=== PATIENT | female | born 2005 | race Native Hawaiian/Other Pacific Islander ===

== ENCOUNTER → 2023-06-17 14:44 | Outpatient (CLI) | payer OTHER, SELFPAY ==
--- NOTE | 2023-06-17 14:45 | DI.US.S_ITS ---
PROCEDURE: US OB <= 14 WEEKS FETUS INDICATIONS: Dating and viability, irregular menses OUTSIDE/PRIOR DATING DATA: Last menstrual period (LMP): 02/09/2023. LMP-based estimated date of delivery (TG): 11/16/2023. First dating scan (date and location): 06/17/2023. Estimated date of delivery (TG) from first dating scan: 12/27/2023. The calculations are made using the ultrasound TG of 12/27/2023. TECHNIQUE: Real-time scanning was performed of the fetus and maternal pelvic organs, with image documentation. Endovaginal scanning was also performed to better visualize the fetus and maternal ovaries. COMPARISON: None. FINDINGS: Embryo: Single gestational sac is seen. The crown-rump length measures 5.9 cm, consistent with 12 weeks and 3 days. Anterior placenta with possible complete placenta previa. Heart rate: 168 beats per minute Maternal organs: Ovaries are grossly within normal limits. IMPRESSION: 1. Single live intrauterine consistent with 12 weeks and 3 days by ultrasound. This is discordant with last menstrual period, recommend clinical correlation and follow-up ultrasound as clinically indicated. 2. Anterior placenta with possible complete placenta previa, attention on follow-up exams. We strive to produce accurate, complete, and clear reports of imaging services. To assist us in improving patient care, this report was composed using standard report templates and voice recognition software. Therefore, it may contain abnormal punctuation, insertions and/or omissions. Occasional wrong-word or sound-alike substitutions may occur. Though we review the report and make efforts to correct it, we do recommend that the report be read carefully in proper context to recognize any text inaccuracies. Dictated by: Alan Fry M.D. on 06/17/2023 at 16:35 Approved by: Alan Fry M.D. on 06/17/2023 at 16:40
== END ==
PROVIDERS: Referring Provider Obstetrics & Gynecology; Visit Provider Obstetrics & Gynecology
DX: Z34.01 Encounter for supervision of normal first pregnancy, first trimester (principal); Z3A.12 12 weeks gestation of pregnancy
CPT/HCPCS: 76801; 76817

== ENCOUNTER → 2023-06-25 14:28 | Outpatient (CLI) | payer OTHER, SELFPAY ==
[2023-06-25 14:44] LABS: Specimen Label NATERA
[2023-06-25 15:29] LABS: Add Manual Diff / Slide Review NO; Basophils Absolute Auto 0 /uL (0-100); Basophils Percent Auto 0.3 % (0-2); Eosinophils Absolute Auto 0 /uL (0-450); Eosinophils Percent Auto 0.3 % (2-4); Hematocrit 33.9 % (36-46); Hemoglobin 11.7 g/dL (12.0-16.0); Lymphocytes Absolute Auto 1800 /uL (1100-4500); Lymphocytes Percent Auto 15.1 % (25-40); Mean Corpuscular HGB Conc 34.5 % (30-36); Mean Corpuscular Hemoglobin 29.8 PG (26-34); Mean Corpuscular Volume 86.3 fL (80-100); Monocytes Absolute Auto 500 /uL (0-900); Monocytes Percent Auto 4.4 % (3-14); Neutrophils Absolute Auto 9200 /uL (1500-7000); Neutrophils Percent Auto 79.9 % (50-75); Platelet Count 297 X10^3/uL (150-400); Red Blood Cell Count 3.93 X10^6/uL (4.0-5.2); Red Cell Distribution Width 14.2 % (11.6-14.8); White Blood Cell Count 11.6 X10^3/uL (4.5-11.0)
[2023-06-25 20:26] LABS: Urine N gonorrhoeae NOT DETECTED
[2023-06-25 20:32] LABS: Urine Chlamydia NOT DETECTED
[2023-06-25 21:55] LABS: Hepatitis B Surface Antigen NEGATIVE s/c (NEGATIVE); Rubella Antibody IgG 3.4 IU/mL (>15)
[2023-06-25 22:11] LABS: HIV 1 & 2 Ab/Ag 4th Gen Combo NEGATIVE (NEGATIVE); Hep C Virus Ab w/Reflex Quant NEGATIVE s/c (NEGATIVE)
[2023-06-26 05:44] LABS: RPR Screen Non Reactive (Non Reactive)
[2023-06-26 08:35] LABS: Varicella IgG Antibody <135 index (Immune >165)
== END ==
PROVIDERS: Specialist; Referring Provider Physician Assistant Medical; Visit Provider Physician Assistant Medical
DX: Z34.00 Encounter for supervision of normal first pregnancy, unspecified trimester (principal); Z3A.13 13 weeks gestation of pregnancy
CPT/HCPCS: 36415; 80055; 86787; 86803; 86850; 86900; 86901; 87389; 87491; 87591

== ENCOUNTER → 2023-07-23 14:35 | Outpatient (CLI) | payer OTHER, SELFPAY ==
[2023-07-25 20:59] LABS: AFP Value 37.8 ng/mL (.); Gest Age on Col Date 20.3 weeks (.); Insulin Dep Diabetes No (.); OSBR Risk 1IN 10000 (.); Results Report (.); Test Results *Screen Negative* (.)
== END ==
PROVIDERS: Referring Provider Physician Assistant Medical; Visit Provider Physician Assistant Medical
DX: Z34.02 Encounter for supervision of normal first pregnancy, second trimester (principal); Z3A.17 17 weeks gestation of pregnancy
CPT/HCPCS: 36415; 82105

== ENCOUNTER → 2023-08-10 06:41 | Outpatient (CLI) | payer OTHER, SELFPAY ==
--- NOTE | 2023-08-10 06:42 | DI.US.S_ITS ---
PROCEDURE: US OB >= 14 WEEKS FETUS INDICATIONS: 20 week anatomy scan OUTSIDE/PRIOR DATING DATA: Last menstrual period (LMP): 02/09/2023 LMP-based estimated date of delivery (TG): 11/16/2023 First dating scan (date and location): 06/17/2023 Estimated date of delivery (TG) from first dating scan: 12/27/2023 The calculations are made using the ultrasound TG of 12/27/2023 TECHNIQUE: Real-time scanning was performed of the fetus, with image documentation and biometric measurements. Endovaginal scanning: Not performed COMPARISON: [facility], OB <= 14 WEEKS FETUS, 06/17/2023, 14:52. FINDINGS: General: A single living intrauterine gestation is present. Presentation: Transverse Placenta: Placental position is anterior, without previa. Amniotic fluid index: 17.3 cm, normal range is 5-24 cm. Single deepest vertical pocket is 5.5 cm. heart rate: 145 beats per minute. Maternal cervical canal: 3.3 cm long. Normal lower limit is 2.5 cm. biometrics: Biparietal diameter: 4.5 cm, 19 weeks 3 days Head circumference: 17.2 cm, 19 weeks 5 days Abdominal circumference: 15.4 cm, 20 weeks 4 days Femur length: 3.3 cm, 20 weeks 1 day Clinically estimated gestational age: 20 weeks 1 day Composite gestational age from present scan: 20 weeks 0 days Estimated weight and percentile: 345 grams, 55th percentile Anatomic survey: Neuro: Ventricles are non-dilated at less than 10 mm. Cisterna magna is normal at 3-11 mm. Cerebellum is normal in size and morphology. Nuchal skin fold: Normal at less than 6 mm between 14-21 weeks gestational age. Face: Nose and lips, facial profile are normal. Spine: No evidence for spina bifida. Heart: 4-chambered heart is present, with normal ventricular outflow tracts. Diaphragm: Diaphragm is intact. Stomach: Left-sided stomach is present. Kidneys: No hydronephrosis. Normal is less than 5 mm in 2nd trimester, less than 7 mm in 3rd trimester. Cord: 3-vessel cord. cord insertion is not well visualized. Placental cord insertion appears normal. Bladder: Normal in size. Extremities: All 4 extremities identified. IMPRESSION: 1. Single live intrauterine with appropriate interval growth compared to the ultrasound from 06/17/2023. 2. cord insertion and anterior abdominal wall are not well seen due to positioning. Recommend follow-up exam. 3. anatomic survey is otherwise within normal limits. We strive to produce accurate, complete, and clear reports of imaging services. To assist us in improving patient care, this report was composed using standard report templates and voice recognition software. Therefore, it may contain abnormal punctuation, insertions and/or omissions. Occasional wrong-word or sound-alike substitutions may occur. Though we review the report and make efforts to correct it, we do recommend that the report be read carefully in proper context to recognize any text inaccuracies. Approved by: Daniel Justin M.D. on 08/10/2023 at 10:46
== END ==
PROVIDERS: Referring Provider Physician Assistant Medical; Visit Provider Physician Assistant Medical
DX: Z34.02 Encounter for supervision of normal first pregnancy, second trimester (principal); Z3A.20 20 weeks gestation of pregnancy
CPT/HCPCS: 76811

== ENCOUNTER → 2023-08-20 10:28 | Outpatient (CLI) | payer OTHER, SELFPAY ==
--- NOTE | 2023-08-20 10:31 | DI.RAD.S_ITS ---
PROCEDURE: XR CHEST 2V INDICATIONS: tachycardia TECHNIQUE: 2 views of the chest were acquired. COMPARISON: None. FINDINGS: Surgical changes and devices: None. Lungs and pleura: Lungs are clear. No pleural effusions or pneumothorax. Mediastinum: Mediastinal contours are normal. Heart size is normal. Bones and chest wall: No suspicious bony abnormalities. Soft tissues appear unremarkable. IMPRESSION: No evidence acute pulmonary process. Dictated by: Edwin Das M.D. on 08/20/2023 at 10:44 Approved by: Edwin Das M.D. on 08/20/2023 at 10:44
[2023-08-20 11:13] LABS: Add Manual Diff / Slide Review NO; Basophils Absolute Auto 100 /uL (0-100); Basophils Percent Auto 0.7 % (0-2); Eosinophils Absolute Auto 300 /uL (0-450); Eosinophils Percent Auto 2.3 % (2-4); Hematocrit 31.6 % (36-46); Hemoglobin 11.2 g/dL (12.0-16.0); Lymphocytes Absolute Auto 1300 /uL (1100-4500); Lymphocytes Percent Auto 9.6 % (25-40); Mean Corpuscular HGB Conc 35.5 % (30-36); Mean Corpuscular Hemoglobin 31.2 PG (26-34); Monocytes Absolute Auto 800 /uL (0-900); Monocytes Percent Auto 6.3 % (3-14); Neutrophils Absolute Auto 10900 /uL (1500-7000); Neutrophils Percent Auto 81.1 % (50-75); Platelet Count 291 X10^3/uL (150-400); Red Blood Cell Count 3.59 X10^6/uL (4.0-5.2); Red Cell Distribution Width 14.7 % (11.6-14.8); White Blood Cell Count 13.4 X10^3/uL (4.5-11.0)
[2023-08-20 11:23] LABS: Alanine Aminotransferase 13 IU/L (<35); Albumin 3.8 g/dL (3.5-5.0); Albumin Globulin Ratio 1.2 (1.0-2.8); Alkaline Phosphatase 77 U/L (38-126); Aspartate Aminotransferase 18 IU/L (14-36); BUN Creatinine Ratio 11.3 (6-22); Bilirubin Total 0.4 mg/dL (0.2-1.3); Blood Urea Nitrogen 6 mg/dL (7-17); Calcium 9.2 mg/dL (8.4-10.2); Carbon Dioxide 24 mmol/L (22-32); Chloride 102 mmol/L (98-107); Estimated Glomerular Filt Rate > 60 mL/min (>60); Globulin 3.3 g/dL (1.7-4.1); Glucose 79 mg/dL (70-100); HEMOLYSIS < 15 (0-50); Potassium 3.7 mmol/L (3.4-5.1); Sodium 133 mmol/L (137-145); Total Protein 7.1 g/dL (6.3-8.2)
[2023-08-20 11:29] LABS: D Dimer 1200 ng/ml (<500)
== END ==
PROVIDERS: PCP Student in an Organized Health Care Education/Training Program; Referring Provider Student in an Organized Health Care Education/Training Program; Visit Provider Student in an Organized Health Care Education/Training Program
DX: R00.0 Tachycardia, unspecified (principal)
CPT/HCPCS: 36415; 71046; 80053; 85025; 85379

== ENCOUNTER → 2023-08-20 15:38 | Outpatient (CLI) | payer OTHER, SELFPAY ==
--- NOTE | 2023-08-20 15:39 | DI.CT.S_ITS ---
PROCEDURE: CT ANGIO CHEST PE PROTOCOL INDICATIONS: concern for PE TECHNIQUE: After the administration of intravenous contrast, 2 mm thick sections acquired from the pulmonary apices to the posterior costophrenic angles. 3-dimensional maximum intensity projection (MIP) coronal and sagittal reformats were then acquired through the thorax. For radiation dose reduction, the following was used: automated exposure control, adjustment of mA and/or kV according to patient size. COMPARISON: None. FINDINGS: Image quality: Suboptimal timing. Bolus is predominantly in the systemic arterial circulation with suboptimal pulmonary arterial opacification. No obvious pulmonary emboli. Pulmonary arteries: Pulmonary arteries are normal in size, and demonstrate no intraluminal filling defects to suggest central pulmonary embolism. Lungs and pleura: Lungs are clear. No pleural effusions or pneumothorax. Central and peripheral airways are patent. Mediastinum: Heart size is normal, without pericardial effusion. No mediastinal or hilar adenopathy. Thoracic aorta is normal in caliber and enhancement. Esophagus is normal in caliber, without hiatal hernia. Bones and chest wall: No suspicious bony lesions. Ribs and thoracic spine appear intact throughout. Thyroid gland is unremarkable as imaged.. No axillary or supraclavicular adenopathy. Abdomen: Benign-appearing left lobe liver calcification. IMPRESSION: 1. Suboptimal study due to technical timing issues. 2. No large central pulmonary emboli. 3. No acute pulmonary process. Comments: Abdominal shielding was utilized during the study. Results were given to the nurse caring for the patient on 08/20/2023 at 1620 hours. Dictated by: Edwin Das M.D. on 08/20/2023 at 16:13 Approved by: Edwin Das M.D. on 08/20/2023 at 16:25
== END ==
PROVIDERS: PCP Student in an Organized Health Care Education/Training Program; Referring Provider Student in an Organized Health Care Education/Training Program; Visit Provider Student in an Organized Health Care Education/Training Program
DX: R00.0 Tachycardia, unspecified (principal)
CPT/HCPCS: 36415; 71046; 71275; 80053; 85025; 85379; Q9967

== ENCOUNTER → 2023-09-14 06:40 | Outpatient (CLI) | payer OTHER, SELFPAY ==
--- NOTE | 2023-09-14 06:41 | DI.US.S_ITS ---
PROCEDURE: US OB FOLLOW UP INDICATIONS: ABDOMINAL WALL AND CORD INSERTION NOT WELL SEEN OUTSIDE/PRIOR DATING DATA: Last menstrual period (LMP): 02/09/2023 LMP-based estimated date of delivery (TG): 11/16/2023 First dating scan (date and location): 06/17/2023 Estimated date of delivery (TG) from first dating scan: 12/27/2023 The calculations are made using the ultrasound TG of 12/27/2023 TECHNIQUE: Real-time scanning was performed of the fetus, with image documentation. Endovaginal scanning: Not performed COMPARISON: [facility], , US OB >= 14 WEEKS FETUS, 08/10/2023, 6:49. FINDINGS: A single living intrauterine gestation is present. Presentation: Vertex Placenta: Placental position is anterior, without previa. Amniotic fluid index: 19.8 cm, normal range is 5-24 cm. Single deepest vertical pocket is 5.8 cm. heart rate: 149 beats per minute. Maternal cervical canal: 3.0 cm long. Normal lower limit is 2.5 cm. Estimated gestational age from initial scan: 25 weeks 1 day abdominal wall appears intact with orthotopic insertion of a 3 vessel cord. IMPRESSION: 1. Single live intrauterine . 2. cord insertion and abdominal wall appear normal. Approved by: Daniel Justin M.D. on 09/14/2023 at 13:24
== END ==
PROVIDERS: Referring Provider Student in an Organized Health Care Education/Training Program; Visit Provider Student in an Organized Health Care Education/Training Program
DX: Z36.2 Encounter for other antenatal screening follow-up (principal); Z3A.25 25 weeks gestation of pregnancy
CPT/HCPCS: 76816

== ENCOUNTER → 2023-09-15 10:59 | Outpatient (CLI) | payer OTHER, SELFPAY ==
[2023-09-15 13:13] LABS: Hematocrit 31.7 % (36-46)
[2023-09-15 13:31] LABS: GTT (PREG) 1 Hour PP 50gm Dose 102 mg/dL (76-139)
== END ==
PROVIDERS: PCP Student in an Organized Health Care Education/Training Program; Referring Provider Student in an Organized Health Care Education/Training Program; Visit Provider Student in an Organized Health Care Education/Training Program
DX: Z34.90 Encounter for supervision of normal pregnancy, unspecified, unspecified trimester (principal); Z3A.25 25 weeks gestation of pregnancy
CPT/HCPCS: 36415; 82950; 85014; 85018; 86850

== ENCOUNTER → 2023-10-01 15:08 | Outpatient (CLI) | payer OTHER, SELFPAY ==
--- NOTE | 2024-09-13 14:14 | PC.NURSE ---
Ignacioo: This RN called and spoke to pt about Zio placement 10/01/23. She stated she was admitted to [facility] then transfered to a [facility]. Ignacioo got lost while she was inpt. She will f/u with PCP with any issues or needs a new zio.
== END ==
PROVIDERS: Family Provider Student in an Organized Health Care Education/Training Program; PCP Student in an Organized Health Care Education/Training Program; Referring Provider Student in an Organized Health Care Education/Training Program; Visit Provider Student in an Organized Health Care Education/Training Program
DX: R00.0 Tachycardia, unspecified (principal)
CPT/HCPCS: 93246

== ENCOUNTER → 2023-10-05 10:29 | Outpatient (CLI) | payer OTHER, SELFPAY ==
[2023-10-05 13:53] LABS: Appearance Urine UA CLEAR; Bilirubin Urine UA NEGATIVE (NEGATIVE); Color Urine UA YELLOW; Glucose Urine UA NEGATIVE (Negative); Ketones Urine UA NEGATIVE (NEGATIVE); Leukocyte Esterase Urine UA NEGATIVE (NEGATIVE); Nitrite Urine UA NEGATIVE (Negative); Occult Blood Urine UA NEGATIVE (Negative); Protein Urine UA NEGATIVE (Negative); Specific Gravity Urine UA 1.015 (1.000-1.035); Urobilinogen Urine UA 0.2 E.U./dL (0.2)
[2023-10-05 13:56] LABS: pH Urine UA 6.5 (4.5-8.0)
[2023-10-05 14:07] LABS: Bacteria Urine Occasional (0-1); Mucus Urine 1+ (Negative); RBC Urine 0-1/HPF (0-5/HPF); Squamous Epithelial Cell Urine 1-5 /HPF (0-5/HPF); WBC Urine 0-1/HPF (0-5/HPF)
[2023-10-05 14:08] LABS: Culture Indicated Urine Cult Not Indicated
== END ==
PROVIDERS: Family Provider Student in an Organized Health Care Education/Training Program; PCP Student in an Organized Health Care Education/Training Program; Visit Provider Student in an Organized Health Care Education/Training Program
DX: R30.0 Dysuria (principal); Z3A.28 28 weeks gestation of pregnancy
CPT/HCPCS: 81001

== ENCOUNTER 2023-10-08 16:44 | Inpatient (IN) | payer OTHER, SELFPAY ==
[2023-10-08] MEDS: LACTATED RINGERS 1,000 ML 1000 ML IV (17:10)
[2023-10-08] MEDS: BETAMETHASONE 30 MG/5 ML MDV 12 MG IM (17:10)
[2023-10-08 17:17] LABS: Add Manual Diff / Slide Review NO; Basophils Absolute Auto 100 /uL (0-100); Eosinophils Absolute Auto 100 /uL (0-450); Eosinophils Percent Auto 0.6 % (2-4); Hematocrit 30.1 % (36-46); Hemoglobin 10.3 g/dL (12.0-16.0); Lymphocytes Absolute Auto 1800 /uL (1100-4500); Lymphocytes Percent Auto 14.8 % (25-40); Mean Corpuscular HGB Conc 34.3 % (30-36); Mean Corpuscular Hemoglobin 29.6 PG (26-34); Mean Corpuscular Volume 86.1 fL (80-100); Monocytes Absolute Auto 700 /uL (0-900); Monocytes Percent Auto 6.1 % (3-14); Neutrophils Absolute Auto 9200 /uL (1500-7000); Neutrophils Percent Auto 77.5 % (50-75); Platelet Count 318 X10^3/uL (150-400); Red Blood Cell Count 3.49 X10^6/uL (4.0-5.2); Red Cell Distribution Width 14.9 % (11.6-14.8); White Blood Cell Count 11.9 X10^3/uL (4.5-11.0)
[2023-10-08] MEDS: MAGNESIUM SULFATE 4 GM/100 ML PIGGYBACK IV (17:22)
[2023-10-08 17:23] LABS: Appearance Urine UA SL CLOUDY; Bilirubin Urine UA NEGATIVE (NEGATIVE); Color Urine UA YELLOW; Glucose Urine UA NEGATIVE (Negative); Ketones Urine UA NEGATIVE (NEGATIVE); Leukocyte Esterase Urine UA NEGATIVE (NEGATIVE); Nitrite Urine UA NEGATIVE (Negative); Occult Blood Urine UA NEGATIVE (Negative); Protein Urine UA NEGATIVE (Negative); Specific Gravity Urine UA 1.015 (1.000-1.035); Urobilinogen Urine UA 0.2 E.U./dL (0.2)
--- NOTE | 2023-10-08 17:25 | PM.OBHP.IH.1 ---
OB HPI Date/Time Date of admission: 10/08/23 Date Patient Seen: 10/08/23 Time Patient Seen: 17:00 History of Present Condition Chief complaint: labor check TG Calculator Estimated Delivery Date Method Current WG Current Estimate 12/27/23 Ultrasound #1 28w 4d Other Estimates 11/16/23 LMP (Certain) 34w 3d : 1 Para: 0 Narrative: Patient is at 28w4d here who presented to clinic today for cramping, green discharge, and headache. She reports cramping began a few days ago after sexual intercourse. She continued to have intermittent back pain and cramping. She had worsening today and came in for evaluation. She reports headache is 7/10 pain. She has not taken anything for it. Reports good movement. Sterile speculum exam revealed bulging bag. SVE was 4/50/-3. Transferred patient from office to birthing center for labor. has been complicated by early and now resolved placenta previa and idiopathic tachycardia. care: good care Dating criteria OB: based on 1st trimester US only Ultrasounds: abnormal US findings Abnormal ultrasound findings: placenta previa on early US; RESOLVED at 20 week scan Obstetrical complications: none Medical complications OB: other (idiopathic tachycardia) Preadmission Labs Last OB Lab Results: Blood Type O Negative 06/25/23 14:35 Antibody Screen Negative 09/15/23 12:29 Hematocrit 30.1 % (36-46) L 10/08/23 17:00 Hemoglobin 10.3 g/dL (12.0-16.0) L 10/08/23 17:00 Hepatitis B Surface Antigen Negative s/c (NEGATIVE) 06/25/23 14:35 Hepatitis C Antibody Negative s/c (NEGATIVE) 06/25/23 14:35 Rubella Antibody 3.4 IU/mL (>15) L 06/25/23 14:35 Varicella-Zoster IgG Antibody <135 index (Immune >165) L 06/25/23 14:35 Glucose 1 Hour 102 mg/dL (76-139) 09/15/23 12:29 Glucose Tolerance Testin hr -: Chlamydia screen: negative Genetic Screens: Cell-free DNA: Normal Evaluation Evaluation Baseline heart rate: 145 Variability: Average (6-10) monitor accelerations: Present Monitor Decelerations: Absent Contraction Frequency (minutes): 0 Category of Tracing: Reactive Status: Category l Dilation (cm): 4 Effacement (%): 50 Dilation: 3-4 cm Effacement: 40-50% station: -3 Position of cervix: posterior Consistency: medium Pappas score: 4 PFSH Medical History (Updated 10/08/23 @ 18:23 by Tegan Dunlap MD) Acne (~2017) Asthma (~2021) Redding-Gideon syndrome Surgical History (Updated 06/17/23 @ 10:08 by Ligia Packer RN) No pertinent past surgical history Family History (Updated 07/22/23 @ 19:16 by Bertha Hyatt) Grandmother Rheumatoid arthritis Mother Rheumatoid arthritis Grandfather Diabetes mellitus Hypertension Grandmother Degenerative joint disease COPD (chronic obstructive pulmonary disease) Arthritis Father Hypertension Grandmother Hypothyroidism Grandfather Cancer Social History marital status: unmarried,living together number of children: 0 household members: significant other and family lives independently: Yes caregiver/support person: No housing: condominium pets and animals: Yes (1 cat, 1 dog; fiancee managing litter box) education level: college occupational status: unemployed current occupational exposures/hazards: No special lanny needs: No travel history: recent seatbelt use: always water heater temp set < 120 deg: Yes working smoke detector in home: Yes fire extinguisher in home: Yes carbon monox detector in home: Yes firearms in home: No do you feel safe at home: Yes Smoking Status: Former smoker Tobacco: How many years used: 2 second hand exposure: Yes (family and s/o all smoke/vape) alcohol intake: former substance use type: does not use during the past year weight has: increased > 10 lbs well-balanced diet: daily or most days daily servings fruits/ve or more times/day caffeine: Yes (cup coffee in AM) Type(s) of exercise: walking and resistance training Meds Home Medications and Allergies Home Medications Medication Instructions Recorded Confirmed Type vitamin-ferrous sulfate tab PO 06/17/23 10/08/23 History 27 mg iron-folic acid 0.8 mg tablet albuterol sulfate 90 mcg/actuation 2 puff inhalation Q6H PRN 09/24/23 10/08/23 Rx aerosol inhaler shortness of breath #8.5 grams Allergies Allergy/AdvReac Type Severity Reaction Status Date / Time ibuprofen AdvReac Severe Redding-Gideon Verified 10/08/23 16:17 syndrome OB Exam Vital signs Blood Pressure: 130/65 Pulse Rate: 90 Narrative Exam Narrative: SVE 4-5/50/-3 Sterile speculum with membranes visualized Objective Labs 10/08/23 17:00 10/08/23 17:00 Labs: Laboratory Results - last 24 hr 10/08/23 17:00 WBC 11.9 H RBC 3.49 L Hgb 10.3 L Hct 30.1 L MCV 86.1 MCH 29.6 MCHC 34.3 RDW 14.9 H Plt Count 318 Neut % (Auto) 77.5 H Lymph % (Auto) 14.8 L [place] % (Auto) 6.1 Eos % (Auto) 0.6 L Baso % (Auto) 1.0 Neut # (Auto) 9200 H Lymph # (Auto) 1800 [place] # (Auto) 700 Eos # (Auto) 100 Baso # (Auto) 100 Assessment and Plan Assessment and Plan Assessment and Plan narrative: G1 admitted with labor. SVE 4-5/50/-3. Initial BP in clinic 140/83. -4g magnesium bolus given followed by 2g/hr -ampicillin 2g bolus given followed by 1g every 4 hrs -BMZ dose #1 given - monitoring appropriate, no contractions noted however patient feeling cramping -CBC, CMP and urine unremarkable, gonorrhea/chlamydia pending -initial plan was transfer to [facility] in [place], however patient progressed to 5-6/80%/-2; she is unstable for transport and will stay here for delivery -will additionally start nifedipine for tocolysis, 20 mg q8hrs
[2023-10-08 17:30] LABS: pH Urine UA 6.5 (4.5-8.0)
[2023-10-08 18:08] VITALS: BP 130/65; PULSE 90
[2023-10-08] MEDS: MAGNESIUM SULFATE 20 GM/500 ML IV.SOLN IV (18:15)
[2023-10-08 18:41] LABS: Aspartate Aminotransferase 32 IU/L (14-36); Blood Urea Nitrogen 6 mg/dL (7-17); Carbon Dioxide 21 mmol/L (22-32); Chloride 106 mmol/L (98-107); Estimated Glomerular Filt Rate > 60 mL/min (>60); HEMOLYSIS 39 (0-50); Magnesium 1.9 mg/dL (1.6-2.3); Potassium 4.2 mmol/L (3.4-5.1); Sodium 134 mmol/L (137-145)
[2023-10-08 18:59] LABS: Urine N gonorrhoeae NOT DETECTED
[2023-10-08] MEDS: AMPICILLIN 2,000 MG in SODIUM CHLORIDE 0.9% 100 ML 200 MG IV (19:00)
[2023-10-08 19:03] LABS: Urine Chlamydia NOT DETECTED
[2023-10-08] MEDS: NIFEdipine 10 MG CAPSULE 20 MG (19:14)
[2023-10-08 20:35] VITALS: BP 120/58
[2023-10-08 21:49] LABS: Strep Grp B PCR NEG for Grp B Strep
[2023-10-08] MEDS: AMPICILLIN 1,000 MG in SODIUM CHLORIDE 0.9% 100 ML 200 MG IV (23:08)
[2023-10-09] MEDS: NIFEdipine 10 MG CAPSULE 20 MG PO (02:55)
[2023-10-09] MEDS: AMPICILLIN 1,000 MG in SODIUM CHLORIDE 0.9% 100 ML 200 MG IV (02:55)
[2023-10-09] MEDS: MAGNESIUM SULFATE 20 GM/500 ML IV.SOLN IV (04:27)
[2023-10-09 06:39] LABS: Magnesium 4.8 mg/dL (1.6-2.3)
--- NOTE | 2023-10-09 07:40 | P.DS_ITS ---
Discharge Providers Provider Date of admission: 10/08/23 16:44 Discharge Date: 10/09/23 Primary care physician: Tegan Dunlap MD Discharge provider: Tegan Dunlap MD Summary Hospital Course Date Patient Seen: 10/08/23 Time Patient Seen: 17:00 Diagnoses: labor Hospital Course: Patient is at 28w4d here who presented to clinic 10/08/23 for cramping, green discharge, and headache. She reported cramping began a few days ago after sexual intercourse. She continued to have intermittent back pain and cramping. She had worsening and came in for evaluation. At appointment, reported headache was 7/10 pain. Sterile speculum exam revealed bulging bag. Initial SVE was 4/50/-3. Transferred patient from office to [facility] for labor. has been complicated by early and now resolved placenta previa and idiopathic tachycardia. At [facility], patient received 4gm magnesium bolus followed by 2g/hr. She was started on ampicillin for GBS prophylaxis and a GBS swab was obtained. She was given her first dose of BMZ. Her initial blood pressure 140/83. Blood pressures remained within normal limits and CMP, CBC, uric acid were all within normal limits. She was rechecked two hours after initial check and was 5/70/-2 with greater head engagement and bulging bag of membranes. Nifedipine 20mg q8hrs was started. Discussed case with Dr. Aurelia Logan at [facility] who did not feel comfortable with transfer due to progression of cervical change. Overnight her tracing was category 1 and she had 2-3 painful contractions total. On morning of 10/09/23, head was no longer engaged in the pelvis and cervical check was 5/70/-3. Patient denied headache, or ongoing cramping/back pain. Spoke with Dr. Aurelia Logan at [facility] who agreed to accept transfer at this time. GBS that was obtained was negative and antibiotics were discontinued. Urine chlamydia and gonorrhea were also negative. Patient was consented for air transport to [facility] for further management of labor. Discharge Diagnosis (1) labor: Status: Acute Status at Discharge Cognitive/behavioral status at discharge: oriented Functional status at discharge: independent ambulation Time Spent with Patient Time attestation: Total time spent providing and/or coordinating discharge services: Time spent: Greater than 30 minutes Objective Labs 10/08/23 17:00 10/08/23 17:00 Labs: Laboratory Results - last 24 hr 10/08/23 10/08/23 10/09/23 17:00 20:25 06:00 WBC 11.9 H RBC 3.49 L Hgb 10.3 L Hct 30.1 L MCV 86.1 MCH 29.6 MCHC 34.3 RDW 14.9 H Plt Count 318 Neut % (Auto) 77.5 H Lymph % (Auto) 14.8 L [place] % (Auto) 6.1 Eos % (Auto) 0.6 L Baso % (Auto) 1.0 Neut # (Auto) 9200 H Lymph # (Auto) 1800 [place] # (Auto) 700 Eos # (Auto) 100 Baso # (Auto) 100 Sodium 134 L Potassium 4.2 Chloride 106 Carbon Dioxide 21 L BUN 6 L Creatinine 0.46 L Estimated GFR > 60 BUN/Creatinine Ratio 13.0 Uric Acid 5.0 Magnesium 1.9 4.8 H AST 32 Urine Color Yellow Urine Appearance Sl cloudy Urine pH 6.5 Ur Specific [place] 1.015 Urine Protein Negative Urine Glucose (UA) Negative Urine Ketones Negative Urine Occult Blood Negative Urine Nitrate Negative Urine Bilirubin Negative Urine Urobilinogen 0.2 Ur Leukocyte Esterase Negative Ur Chlamydia DNA (PCR) Not detected Group B Strep (PCR) Neg for grp b strep N gonorrhoeae DNA (PCR) Not detected Blood Type O Negative Antibody Screen Negative Discharge Plan Discharge Plan Patient Disposition: [facility] Other facility: [facility] Under care of provider: Dr Aurelia Logan Discharge orders & Medications Prescriptions: No Action albuterol sulfate 90 mcg/actuation HFA aerosol inhaler 2 puff inhalation Q6H PRN (Reason: shortness of breath ) Qty: 8.5 3RF vit-ferrous sulfat-FA 27 mg iron- 0.8 mg tablet PO Follow up/Referrals: Tegan Dunlap MD [Primary Care Provider] - Discharge Data Primary Care Provider: Tegan Dunlap Attending Provider: Tegan Dunlap Admit Date/Time: 10/08/23 16:44
== END 2023-10-09 08:34 | disposition short-term general hospital (02) | DRG 833 ==
PROVIDERS: Admitting Provider Student in an Organized Health Care Education/Training Program; Family Provider Student in an Organized Health Care Education/Training Program; PCP Student in an Organized Health Care Education/Training Program; Referring Provider Student in an Organized Health Care Education/Training Program; Visit Provider Student in an Organized Health Care Education/Training Program
DX: O60.03 Preterm labor without delivery, third trimester (principal); Z3A.28 28 weeks gestation of pregnancy; O99.892 Other specified diseases and conditions complicating childbirth; R51.9 Headache, unspecified
CPT/HCPCS: 36415; 59025; 59050; 80051; 81003; 83735; 84450; 84550; 85025; 86850; 86900; 86901; 87086; 87491; 87591; 87653; 96360; 96372; G0378; G0379; J0290; J0702; J3475

== ENCOUNTER → 2023-10-08 | Outpatient (CLI) | payer OTHER, SELFPAY | PROVIDERS: Family Provider Student in an Organized Health Care Education/Training Program; PCP Student in an Organized Health Care Education/Training Program; Visit Provider Student in an Organized Health Care Education/Training Program ==

== ENCOUNTER 2023-12-26 19:38 | Emergency (ER) | payer OTHER, SELFPAY ==
[2023-12-26] VITALS (10 sets, daily range): BP systolic 119–142; BP diastolic 64–94; PULSE 96–138; RESP 18–20; TEMP 37.9–39.1; O2SAT 97–98; BMI 30.4
--- NOTE | 2023-12-26 19:52 | DI.RAD.S_ITS ---
PROCEDURE: XR CHEST 1V INDICATIONS: covid + TECHNIQUE: One view of the chest was acquired. COMPARISON: [facility], CT, CT ANGIO CHEST PE PROTOCOL, 08/20/2023, 15:45. [facility], CR, XR CHEST 2V, 08/20/2023, 10:39. FINDINGS: Surgical changes and devices: None. Lungs and pleura: No focal infiltrates are seen. Low lung volumes are noted. This causes a crowded appearance to the lung markings and limits evaluation. No pleural effusions or pneumothorax. Mediastinum: Mediastinal contours appear normal. Heart size is normal. Bones and chest wall: No suspicious bony lesions. Overlying soft tissues appear unremarkable. IMPRESSION: Low lung volumes, without an acute abnormality seen by plain film. If there is clinical concern for a developing pulmonary process, a short-term followup chest series (with PA and lateral views, performed in deep inspiration) is suggested for further evaluation. Dictated by: Milton Montes M.D. on 12/26/2023 at 19:19 Approved by: Milton Montes M.D. on 12/26/2023 at 19:21
[2023-12-26] MEDS: ACETAMINOPHEN 325 MG TABLET 975 MG PO (19:55)
--- NOTE | 2023-12-26 20:15 | PC.NURSE ---
Addendum entered by Mona Dominguez R.N. 12/26/23 20:17: Pt states that she took an at home COVID test and it was positive. Original Note: Pt states that she has previously hit top of head on cabinet. Everytime she coughs it makes headache worse.
--- NOTE | 2023-12-26 21:46 | ED.URI ---
HPI - URI/Sore Throat General Chief Complaint: Upper Respiratory Symptoms Stated Complaint: Covid+/feels faint/fever/chills Time Seen by Provider: 12/26/23 21:32 Source: patient Mode of arrival: Ambulatory History of Present Illness HPI Narrative: 18 year old female with history of asthma with recent diagnosis of COVID. Patient has had where she has not had anything since this afternoon. She is asked some dizziness lightheaded but no syncope. She has had a cough but very minimal sputum. No chest pain, no shortness breast she is felt nauseated but no vomiting no issues with bowel movements, urination or swelling of extremities. Ninety daily medications. No prior surgeries. Related Data Home Medications Medication Instructions Recorded Confirmed vitamin-ferrous sulfate tab PO 06/17/23 10/08/23 27 mg iron-folic acid 0.8 mg tablet Previous Rx's Medication Instructions Recorded albuterol sulfate 90 mcg/actuation 2 puff inhalation Q6H PRN 09/24/23 aerosol inhaler shortness of breath #8.5 grams Allergies Allergy/AdvReac Type Severity Reaction Status Date / Time ibuprofen AdvReac Severe [place]-Gideon Verified 10/08/23 16:17 syndrome Review of Systems Review of Systems ROS Unobtainable: All systems reviewed & are unremarkable except as noted in HPI and below Patient History Medical History Acne (~2017) Asthma (~2021) Redding-Gideon syndrome Surgical History No pertinent past surgical history Family History Grandmother Rheumatoid arthritis Mother Rheumatoid arthritis Grandfather Diabetes mellitus Hypertension Grandmother Degenerative joint disease COPD (chronic obstructive pulmonary disease) Arthritis Father Hypertension Grandmother Hypothyroidism Grandfather Cancer Social History marital status: unmarried,living together number of children: 0 household members: significant other and family lives independently: Yes caregiver/support person: No housing: condominium pets and animals: Yes (1 cat, 1 dog; fiancee managing litter box) education level: college occupational status: unemployed current occupational exposures/hazards: No special lanny needs: No travel history: recent seatbelt use: always water heater temp set < 120 deg: Yes working smoke detector in home: Yes fire extinguisher in home: Yes carbon monox detector in home: Yes firearms in home: No do you feel safe at home: Yes Smoking Status: Never smoker Tobacco: How many years used: 2 second hand exposure: Yes (family and s/o all smoke/vape) alcohol intake: former substance use type: does not use during the past year weight has: increased > 10 lbs well-balanced diet: daily or most days daily servings fruits/ve or more times/day caffeine: Yes (cup coffee in AM) Type(s) of exercise: walking and resistance training Smoking Status: Never smoker Substance Use Type: does not use Exam Narrative Exam Narrative: GENERAL: Alert and oriented x three, well-appearing female in mild distress. HEENT: Head normocephalic, atraumatic, EOMI, pupils reactive, nasal congestion, face symmetric, moist mucous membranes NECK: Supple, full range of motion CARDIOVASCULAR: Regular rate and rhythm without murmurs, rubs or gallops. No JVD. No edema bilateral lower extremities. RESPIRATORY: Breath sounds equal bilaterally, no wheezes rales or rhonchi. No tachypnea or accessory muscle use. Speaks in full sentences. No cough. ABDOMEN: Soft, nontender. Normoactive bowel sounds all 4 quadrants. No guarding or rebound, rigidity, no mass : No CVA tenderness EXTREMITIES: Normal range of motion, no clubbing or edema. Neurovascularly intact NEUROLOGICAL: Cranial nerves II through XII grossly intact. Moving all extremities SKIN: Warm, dry, no petechiae, no rashes or lesions. Initial Vital Signs Initial Vital Signs: Vital Signs Temperature 102.4 F H 12/26/23 19:43 Pulse Rate 138 H 12/26/23 19:43 Respiratory Rate 18 12/26/23 19:43 Blood Pressure 142/94 H 12/26/23 19:43 Pulse Oximetry 98 12/26/23 19:43 Oxygen Delivery Method Room Air 12/26/23 19:43 Course Orders Ordered: Discontinued Medications Acetaminophen (Acetaminophen 325 Mg Tablet) 975 mg PO NOW ONE Stop: 12/26/23 19:52 Last Admin: 12/26/23 19:55 Dose: 975 mg Documented By: ANJU Vital Signs Vital signs: Vital Signs - 8 hr 12/26/23 21:44 12/26/23 21:45 12/26/23 22:00 Temperature 100.3 F H 100.3 F H Pulse Rate 98 H 96 H Pulse Oximetry 98 Oxygen Delivery Method Room Air MDM - URI/Sore Throat Imaging Data Chest x-ray: Radiologist's Impression: [address] [address] XRay Report Signed Patient: Gi Nieves MR#: [id number] : 2005 Acct:[id number] Age/Sex: 18 / F Date of Service: 12/26/23 Loc: ED Accession Number: [id number] Procedure: XR chest 1V Ordering Provider: Amelia Curry D.O. PROCEDURE: XR CHEST 1V INDICATIONS: covid + TECHNIQUE: One view of the chest was acquired. COMPARISON: [facility], CT, CT ANGIO CHEST PE PROTOCOL, 08/20/2023, 15:45. [facility], CR, XR CHEST 2V, 08/20/2023, 10:39. FINDINGS: Surgical changes and devices: None. Lungs and pleura: No focal infiltrates are seen. Low lung volumes are noted. This causes a crowded appearance to the lung markings and limits evaluation. No pleural effusions or pneumothorax. Mediastinum: Mediastinal contours appear normal. Heart size is normal. Bones and chest wall: No suspicious bony lesions. Overlying soft tissues appear unremarkable. IMPRESSION: Low lung volumes, without an acute abnormality seen by plain film. If there is clinical concern for a developing pulmonary process, a short-term followup chest series (with PA and lateral views, performed in deep inspiration) is suggested for further evaluation. Dictated by: Milton Montes M.D. on 12/26/2023 at 19:19 Approved by: Milton Montes M.D. on 12/26/2023 at 19:21 ECG Data Attestation: I personally reviewed and interpreted this ECG as follows: Interpretation: Sinus tachycardia, 128, OR 160 QRS is 74 QTC [address] elevation depression noted. MDM Narrative Medical decision making narrative: 18-year-old female with COVID infection with reassuring chest x-ray, patient was tachycardic but febrile tachycardia has resolved his fever has improved after Tylenol. Patient is overall well-appearing felt appropriate for discharge home. EKG does show sinus tachycardia. Discharge Plan Departure Patient Disposition: Home Clinical Impression: COVID-19 virus infection, Fever Instructions: DI for COVID-19 (Suspected or Confirmed ) Activity Restrictions/Additional Instructions: Please follow up for recheck as needed. Viral illnesses typically last 7-10 days. You may take Tylenol up to a 1000 mg every 6 hours and/or ibuprofen up to 600 mg every 6 hours for fevers. Please return if you are having new or worsening symptoms new chest pain, shortness of breath, passing out, new swelling of extremities or other new or concerning changes. Prescriptions: No Action albuterol sulfate 90 mcg/actuation HFA aerosol inhaler 2 puff inhalation Q6H PRN (Reason: shortness of breath ) Qty: 8.5 3RF vit-ferrous sulfat-FA 27 mg iron- 0.8 mg tablet PO Referrals: Tegan Dunlap MD [Primary Care Provider] - Stand Alone Forms: Patient Portal/API
== END 2023-12-26 22:07 | disposition home or self-care (01) ==
PROVIDERS: Emergency Provider Emergency Medicine; Family Provider Student in an Organized Health Care Education/Training Program; PCP Student in an Organized Health Care Education/Training Program
DX: U07.1 COVID-19 (principal); R00.0 Tachycardia, unspecified
CPT/HCPCS: 71045; 93005; 99283